=== PATIENT | male | born 1940 | race Caucasian/White ===

== ENCOUNTER → 2016-10-20 | Outpatient (CLI) | payer MEDICARE, BC ==
[~2016-10-20] MED LIST: ACET-763 PO; AMLO10TA62 PO; ASPI-730 PO; FOLI0.8T23 PO; GLIM2TAB PO; LEVO25TA51 PO; LISI-126 PO; [UNRECOGNIZED DRUG - CODE] PO
--- NOTE | 2016-10-22 20:19 | ECHOF ---
DATE OF STUDY 10/20/2016 2D, M-mode, color flow and Doppler echocardiographic examinations were performed on this patient. The left atrium is enlarged. The left ventricle is normal in size. The left ventricle, including the septum, moves appropriately during systole and diastole. Overall ejection fraction is 58%. The mitral valve opens appropriately and does not evidence stenosis or prolapse. The aortic, tricuspid and pulmonic valves appear normal. There is some posterior mitral annular calcification noted and trace mitral regurgitation. There is minimal sclerosis on the aortic valve. There is mild tricuspid regurgitation. Pulmonary pressures are 21 mmHg. IVC collapses well. The right atrium and right ventricle, including inflow and outflow tracts, appear normal. Right ventricular function is normal. Aortic root is normal. No vegetations are seen on any valve. No intracavitary masses or thrombi are noted. There is no pericardial effusion. Mild diastolic dysfunction is noted. CONCLUSION Normal LV function, 58%. Trace mitral regurgitation with posterior mitral annular calcification noted. Trace tricuspid regurgitation. Normal pulmonary pressures. Mild diastolic dysfunction. Left atrial enlargement. MTDD
== END ==
LOC: IMA 09:29
PROVIDERS: ATTEND Internal Medicine Cardiovascular Disease
DX: I10 Essential (primary) hypertension (principal); I50.30 Unspecified diastolic (congestive) heart failure; I51.7 Cardiomegaly
CPT/HCPCS: 93306